=== PATIENT | female | born 1955 | race Caucasian/White ===

== ENCOUNTER 2023-11-26 12:37 | Outpatient (RCR) | payer MEDICARE, BC, SELFPAY | END 2024-03-25 23:59 | disposition home or self-care (01) | PROVIDERS: PCP Surgery; Visit Provider Surgery | DX: Z53.20 Procedure and treatment not carried out because of patient's decision for unspecified reasons (principal) ==

== ENCOUNTER 2023-12-03 13:45 | Outpatient (RCR) | payer MEDICARE, BC, SELFPAY | END 2024-04-01 23:59 | disposition home or self-care (01) | PROVIDERS: PCP Surgery; Visit Provider Neurological Surgery | DX: G95.9 Disease of spinal cord, unspecified (principal); M54.12 Radiculopathy, cervical region; M54.2 Cervicalgia; Z74.09 Other reduced mobility; R29.898 Other symptoms and signs involving the musculoskeletal system; Z51.89 Encounter for other specified aftercare | CPT/HCPCS: 97110; 97140; 97162 ==

== ENCOUNTER 2024-01-06 13:23 | Emergency (ER) | payer MEDICARE, BC, SELFPAY ==
[2024-01-06 13:38] VITALS: BP 139/71; PULSE 60; RESP 16; TEMP 36.2; O2SAT 98; BMI 30.4
--- NOTE | 2024-01-06 14:29 | ED.HEATRA ---
HPI - Head Injury General Time Seen by Provider: 14:29 Date Seen: 01/06/24 Chief complaint: Head Injury/Pain Stated complaint: Fell and hit head-lip bleeding-doesnt recall fall Time Seen by Provider: 01/06/24 14:29 Source: patient and RN notes reviewed Mode of arrival: ambulatory Limitations: no limitations History of Present Illness HPI Narrative: This 68-year-old female is coming in with her after a fall prior to coming in. Her was not with her at the time, she was in [facility] eating lunch. She tripped on the sidewalk and fell forward. She has abrasion on the palm of her left hand but no hand or wrist pain. She states she caught herself with her right wrist, is having pain in the right wrist area. She did hit her lower lip, has some bleeding there and swelling. She hit her head on the bottom lip, did not hit her forehead her head per se. She has no acute neck pain. She has had neck surgery in does have chronic neck pain but states she absolutely is having no new neck symptoms. There is no pain going into her arms from the neck. She does have right wrist pain but nothing coming down the arms. Denies any numbness tingling in her extremities. She is having no difficulty walking, no pain in her lower extremities. She denies any difficulty breathing, no chest pain or chest wall pain. She does have underlying dementia, on no blood thinners or anticoagulants, has underlying diabetes. Her tetanus is up-to-date in 2021. MD Complaint: fall Related Data Home Medications Medication Instructions Recorded Confirmed atenolol 50 mg tablet 50 mg PO DAILY 01/06/24 01/06/24 furosemide 20 mg tablet 20 mg PO DAILY 01/06/24 01/06/24 gabapentin 100 mg capsule mg PO 01/06/24 hydroxyzine HCl 25 mg tablet 25 mg PO DAILY 01/06/24 01/06/24 insulin aspart U-100 100 unit/mL subcut 01/06/24 (3 mL) subcutaneous pen insulin glargine 100 unit/mL (3 unit subcut 01/06/24 mL) subcutaneous pen (Lantus Solostar U-100 Insulin) insulin lispro 100 unit/mL subcut 01/06/24 subcutaneous pen (Humalog KwikPen (U-100) Insulin) lamotrigine 100 mg tablet 100 mg PO BID 01/06/24 01/06/24 lamotrigine 25 mg tablet PO 01/06/24 levothyroxine 125 mcg tablet 125 mcg PO DAILY 01/06/24 01/06/24 ondansetron 4 mg disintegrating 4 mg PO Q8H PRN 01/06/24 01/06/24 tablet rosuvastatin 5 mg tablet 5 mg PO DAILY 01/06/24 01/06/24 spironolactone 25 mg tablet 25 mg PO DAILY 01/06/24 01/06/24 trazodone 50 mg tablet 25 mg PO QPM PRN 01/06/24 01/06/24 Allergies Allergy/AdvReac Type Severity Reaction Status Date / Time No Known Drug Allergies Allergy Verified 01/06/24 13:45 Review of Systems Status of ROS: Reports: 6 or more systems reviewed and unremarkable except as noted in History and below Exam Const: Vital Signs, click to edit/add: Vital Signs - 24 hr 01/06/24 13:38 Temperature 97.2 F L Pulse Rate [Pulse Oximeter] 60 Respiratory Rate 16 Blood Pressure [Le ft Upper Arm] 139/71 Pulse Oximetry 98 Oxygen Delivery Me thod Room Air This 5-year-old female is ambulatory into the ED without any difficulty. She sitting up on the edge of the bed in exam room 6. She is alert, interactive, no apparent distress. I do know right away just left of center below the lower lip there is about a 3 mm laceration that is slightly curved, slight oozing at times. There is underlying bruising and swelling in this area. It does not cross onto the lip or the vermilion border at all. She feels like her teeth occlude normally, oropharynx reveals small little defect lower in the mucosa that is superficial, do not see any active bleeding at this time. Tongue is atraumatic, rest oral mucosa looks normal, dentition not showing any evidence of traumatic change, posterior pharynx normal. She is able to speak in complete sentences. Scalp without any changes of trauma. She has a superficial abrasion on her chin. Nose and nares atraumatic, no drainage. No drainage from her ears. No midline tenderness over neck, no paraspinous tenderness. She states she has limitation in range of motion baseline, feels she is at normal range of motion. Lungs are clear, good air entry, no wheezing crackles. CV regular rate and rhythm no murmur. Abdomen is soft, nontender. She has no pain around range of motion of shoulders or palpation, upper arms and elbows are normal. Forearms are normal until you get to her right wrist and she has some distal wrist tenderness, cannot find specific point tenderness, seems to be generalized over the right distal wrist and into the possible carpal bones. No tenderness over the left wrist. Superficial abrasion at the base in the center of the left palm, no active bleeding. Full range of motion of fingers in this hand normal snagger strength without any pain. She is nontender throughout her right hand and fingers, has normal range of motion and strength but movement of the hand does cause some wrist pain. Neurovascular is intact in both of her upper extremities. She was ambulatory into the ED, has no complaint of pain in her legs. Documenting provider has reviewed patient's vital signs: yes Course Course ED Course: Did discuss with patient that I thought she might benefit from 1 small suture on the outer aspect of the small laceration below her lower lip. She absolutely declined. I did take a Steri strip and place it across the area, hopefully reapproximating this in the use of the Steri-Strips will stop the minimal losing that was happening. Realistically this wound was lying nicely with the wound edges juxtaposed but there was some mild oozing before the Steri strip was placed. She is adamant that she does not want me to put a suture in. We will watch and observe to see if the Steri-Strips will be sufficient. We will x-ray her right hand. Do not see that she needs any head imaging. Reevaluation(s) Time of Reevaluation #1: 15:28 Reevaluation #1: Reviewed negative x-ray of her wrist for fracture. We discussed cock-up wrist splint, they state they have 1 at home. They can use this for comfort, if ongoing wrist pain will advise follow-up. Her Steri-Strips seems to be holding the area of the lower lip, no further bleeding. Vital Signs Vital signs: Initial Vital Signs Temperature 97.2 F L 01/06/24 13:38 Temperature Source Temporal Artery Scan 01/06/24 13:38 Pulse Rate 60 01/06/24 13:38 Respiratory Rate 16 01/06/24 13:38 Blood Pressure 139/71 01/06/24 13:38 Blood Pressure Mean 93 01/06/24 13:38 Blood Pressure Position Sitting 01/06/24 13:38 Pulse Oximetry 98 01/06/24 13:38 Oxygen Delivery Method Room Air 01/06/24 13:38 Vital Signs Temperature 97.2 F L 01/06/24 13:38 Pulse Rate 60 01/06/24 13:38 Respiratory Rate 16 01/06/24 13:38 Blood Pressure 139/71 01/06/24 13:38 Pulse Oximetry 98 01/06/24 13:38 Oxygen Delivery Method Room Air 01/06/24 13:38 Temperature 97.2 F L 01/06/24 13:38 Pulse Rate 60 01/06/24 13:38 Respiratory Rate 16 01/06/24 13:38 Blood Pressure 139/71 01/06/24 13:38 Pulse Oximetry 98 01/06/24 13:38 Oxygen Delivery Method Room Air 01/06/24 13:38 MDM - Head Injury Imaging Data XR right wrist: Attestation: I have reviewed the pertinent imaging results. Radiologist's impression: Patient: SARI NUNN Facility:?[facility] Patient ID:?[id number] Site Patient ID:?[id number]. Site :?[id number] Study:?XRay-Extremity Right WRIST 3 VIEWS-01/06/2024 3:01:02 PM Ordering Physician:RADHA Final Report: Indication: FALL, PAIN Technique: Three views of the right hand Comparison: None Findings/impression : No acute fracture or malalignment. 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 No significant osteoarthritic degenerative changes throughout the wrist. No suspicious osseous lesions. The soft tissues are unremarkable. Dictated by Cole Ryan MD @ 01/06/2024 3:18:07 PM (Electronic Signature) Discharge Plan Discharge Clinical Impression: Acute wrist pain Qualifiers: Laterality: right Qualified Code(s): M25.531 - Pain in right wrist Laceration of lower lip Qualifiers: Encounter type: initial encounter Qualified Code(s): S01.511A - Laceration without foreign body of lip, initial encounter Fall Qualifiers: Encounter type: initial encounter Qualified Code(s): W19.XXXA - Unspecified fall, initial encounter Patient Disposition: Home, Self-Care Condition: Stable Instructions: Fall Prevention for Older Adults (ED), Wrist Sprain (ED), Laceration Without Closure (ED) Additional Instructions: Use the Steri-Strips across the lower lip as needed for the next 3-5 days. If this wound has quit bleeding and has a nice scab, can stop using the Steri-Strips. Use bacitracin on the abrasions for the chin and the hand. Can use your wrist splint at home as needed for comfort. If your right wrist is not improving as far as pain over the next 1-2 weeks, do recommend re-evaluation in clinic for re-x-ray. Can use Tylenol per bottle directions if needed for any discomfort. If you have further concerns or issues in the interim, do recommend re-evaluation per Prescriptions: No Action trazodone 50 mg tablet 25 mg PO QPM PRN spironolactone 25 mg tablet 25 mg PO DAILY lamotrigine 25 mg tablet PO Patient Comments: only taking 100 mg daily levothyroxine 125 mcg tablet 125 mcg PO DAILY hydroxyzine HCl 25 mg tablet 25 mg PO DAILY furosemide 20 mg tablet 20 mg PO DAILY gabapentin 100 mg capsule PO ondansetron 4 mg tablet,disintegrating 4 mg PO Q8H PRN atenolol 50 mg tablet 50 mg PO DAILY lamotrigine 100 mg tablet 100 mg PO BID insulin lispro [Humalog KwikPen Insulin] 100 unit/mL insulin pen subcut insulin aspart U-100 100 unit/mL (3 mL) insulin pen subcut rosuvastatin 5 mg tablet 5 mg PO DAILY insulin glargine [Lantus Solostar U-100 Insulin] 100 unit/mL (3 mL) insulin pen subcut Follow Up/Referrals: Kana Hercules MD [Primary Care Provider] - Stand Alone Forms: [employer] Info Instructions
--- NOTE | 2024-01-06 14:37 | XR_ITS ---
Patient: SARI NUNN Facility:?[facility] Patient ID:?[id number] Site Patient ID:?[id number]. Site :?[id number] Study:?XRay-Extremity Right WRIST 3 VIEWS-01/06/2024 3:01:02 PM Ordering Physician:RADHA Final Report: Indication: FALL, PAIN Technique: Three views of the right hand Comparison: None Findings/impression : No acute fracture or malalignment. 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 No significant osteoarthritic degenerative changes throughout the wrist. No suspicious osseous lesions. The soft tissues are unremarkable. Dictated by Cole Ryan MD @ 01/06/2024 3:18:07 PM Signed by:?Cole Ryan MD @01/06/2024 3:18:07 PM (Electronic Signature)
== END 2024-01-06 15:38 | disposition home or self-care (01) ==
PROVIDERS: Emergency Provider Family Medicine; PCP Surgery
DX: M25.531 Pain in right wrist (principal); S01.511A Laceration without foreign body of lip, initial encounter; W19.XXXA Unspecified fall, initial encounter
CPT/HCPCS: 29125; 73110; 99283; 99284

== ENCOUNTER 2024-06-26 14:45 | Outpatient (RCR) | payer MEDICARE, BC, SELFPAY | END 2024-10-24 23:59 | disposition home or self-care (01) | PROVIDERS: PCP Surgery; Visit Provider Surgery | DX: M25.812 Other specified joint disorders, left shoulder (principal); M25.512 Pain in left shoulder; Z74.09 Other reduced mobility; R53.1 Weakness; R29.3 Abnormal posture; Z51.89 Encounter for other specified aftercare | CPT/HCPCS: 97110; 97140; 97162 ==

== ENCOUNTER 2025-06-09 20:19 | Outpatient (CLI) | payer MEDICARE, BC, SELFPAY | END 2025-06-09 20:20 | disposition home or self-care (01) | LOC: AMB 06-10 15:28 | PROVIDERS: PCP Surgery; Visit Provider Emergency Medicine | DX: M54.9 Dorsalgia, unspecified (principal); M54.2 Cervicalgia | CPT/HCPCS: A0425; A0429 ==

== ENCOUNTER 2025-06-09 20:43 | Emergency (ER) | payer MEDICARE, BC, SELFPAY ==
--- OUTSIDE RECORDS SUMMARY | 2025-06-09 20:45 | XMS_ITS | Clinical Summary ---
Author Organization [employer] [facility] [employer] Address [address] [place] [address] Care Team Providers Care Soapstoner Name Role Phone Kana Hercules MD Primary Care Provider [phone] Allergies Active Allergy Reactions Criticality Noted Date Comments Amlodipine Other - Describe In Comment Field 01/29/2020 Multiple symptoms - Headaches, stomach pain, and more Aspirin GI Bleeding 07/28/2019 Atorvastatin Myalgia 05/24/2010 Diazepam Other - Describe In Comment Field 05/24/2010 Pt did not like the way it made her feel Hydrochlorothiazide 05/26/2010 Caused hyponatremia Lisinopril Cough 01/01/2020 Losartan Other - Describe In Comment Field 01/29/2020 Racing heart, chest pain, shortness of breath Meclizine Hives,Vomiting 06/02/2018 Olanzapine Hallucinations 06/17/2023 Pravastatin 08/07/2010 Nausea, vomiting, and back pain. Quetiapine 05/26/2010 Caused jesus and hallucinations. Sumatriptan 05/24/2010 Medications glucagon (TAMMIE KATHRYN) 1 mg kit Glucagon Emergency Kit for Low Blood Sugar 1 mg injection See Instructions, Subcut. Once, use as directed if unconscious due to low blood sugar and unable to swallow, seek medical attention if used, PRN: Hyperglycemia, 1 kit(s), 1 Refill(s) 01/31/20 16 Active multivit,Ca,mins-F A-bioflav#4 800 mcg cmpk Take 1 Packet by mouth once daily. 0 01/22/20 20 Active Dexcom G7 Clod Puller for continuous blood glucose monitor (CGM)Indications:T ype 1 diabetes mellitus with stage 3b chronic kidney disease (HC) To be used to read blood sugars follow four h club agent directions. 1 Each 12/25/19 23 Active Bifidobacterium infantis (ALIGN ORAL) Take 1 Capsule by mouth once daily. Active insulin aspart, U-100, (NOVOLOG FLEXPEN) 100 unit/mL (3 mL) penIndications:Typ e 1 diabetes mellitus with stage 3b chronic kidney disease (HC) 16 units with breakfast, 16 units with lunch, and 18 units with supper 45 mL 3 05/01/20 24 Active rosuvastatin (CRESTOR) 5 mg tabletIndications: Hyperlipidemia, unspecified hyperlipidemia type Take 1 Tablet (5 mg) by mouth at bedtime. 90 Tablet 3 05/01/20 24 Active Additional Information Patient not taking.Reported on 03/15/2025 spironolactone (ALDACTONE) 25 mg tabletIndications: Hypertension, unspecified type Take 1 Tablet (25 mg) by mouth once daily in the morning. 90 Tablet 3 05/01/20 24 Active furosemide (LASIX) 20 mg tabletIndications: Hypertension, unspecified type Take 1 Tablet (20 mg) by mouth once daily in the morning. 90 Tablet 3 05/01/20 24 Active Dexcom G7 Sensor for continuous blood glucose monitor (CGM)Indications:T ype 1 diabetes mellitus with stage 3b chronic kidney disease (HC) CHANGE EVERY 10 DAYS 9 Each 3 05/07/20 24 Active atenoloL (TENORMIN) 100 mg tabletIndications: Hypertension, unspecified type Take 1 Tablet (100 mg) by mouth once daily. 90 Tablet 3 06/02/20 24 Active lamoTRIgine 100 mg tabletIndications: Bipolar depression (HC) TAKE ONE TABLET BY MOUTH EVERY EVENING AT BEDTIME 90 Tablet 11/18/19 25 Active pen needle,diabetic dual safty (BD AutoShield Duo Pen Needle) 30 gauge x 11/01 ndleIndications:Ty pe 1 diabetes mellitus with stage 3b chronic kidney disease (HC) USE DIRECTED WITH INSULIN FIVE TIMES PER DAY 500 Each 3 12/16/19 25 Active traZODone 50 mg tabletIndications: Anxiety TAKE 1/2 TABLET BY MOUTH NIGHTLY FOR INSOMNIA at 8 pm 12/16/19 25 Active LORazepam 0.5 mg tabIndications:Anx iety Take 1 Tablet (0.5 mg) by mouth once daily. In the afternoon for . 30 Tablet 5 12/16/19 25 Active acetaminophen 500 mg tablet Take 1,000 mg by mouth every 6 hours if needed. Give two tabs by mouth once daily as needed Max acetaminophen dose: 4000mg in 24 hrs. Active acetaminophen 500 mg tablet Take 1,000 mg by mouth every 6 hours if needed. Give two tabs by mouth every day at 8 am and 8 pm Max acetaminophen dose: 4000mg in 24 hrs. Active medication order composer Daily Diabetes Health Pack Oral Miscellaneous-Giv e one pack once per day Active LORazepam 0.5 mg tab Take 0.5 mg by mouth every 6 hours if needed. Active magnesium L-threonate 48 mg magnesium (667 mg) cap Take by mouth. Activ e polyethylene glycoL (Miralax) 17 gram/scoop powder Mix 1 scoop in liquid then take by mouth once daily. One scoop daily at 8am Active naloxone (Narcan) 4 mg/actuation nasal spray Inhale 1 Deport into affected nostril(s) each time if needed for Patient Diff To Arouse or Resp Rate < 8 / min. Additional doses may be given every 2 to 3 minutes until emergency medical assistance arrives. Active niacin 50 mg tablet Take 50 mg by mouth once daily. Active levothyroxine (SYNTHROID) 150 mcg tablet Take 150 mcg by mouth once daily. 02/11/20 25 Active ramelteon (ROZEREM) 8 mg tabletIndications: Insomnia due to other mental disorder TAKE 1 TABLET BY MOUTH EVERY NIGHT AT BEDTIME 90 Tablet 03/21/20 25 Active insulin glargine (U-100) (Lantus Solostar U-100 Insulin) 100 unit/mL (3 mL) penIndications:Typ e 1 diabetes mellitus with complication (HC) Inject 18 units subcutaneous two times daily. 30 mL 04/25/20 25 Active Active Problems Problem Noted Date Diagnosed Date Insomnia due to other mental disorder 03/16/2025 Alzheimer disease 12/15/2024 Anxiety 12/15/2024 Hypothyroidism (acquired) 01/03/2017 Acute gastric ulcer without hemorrhage or perfor ation 01/01/2017 Overview (01/01/2017): EGD 12/2016 gastric ulcer Diabetic retinopathy of both eyes 11/02/2016 Diabetic peripheral neuropathy 11/02/2016 Primary cervical cancer 11/02/2016 Overview (11/02/2016): At age 19 - s/p hysterectomy Dyslipidemia 05/04/2016 History of posttraumatic stress disorder (PTSD) 03/07/2016 Alcohol dependence in sustained full remission 0 03/07/2016 Overview (11/02/2016): No alcohol since 1986 Bipolar I disorder 03/07/2016 CKD (chronic kidney disease) stage 3, GFR 30-59 ml/min 05/26/2010 Overview (05/26/2010): Secondary to presumptive diabetic nephropathy. Type 1 diabetes mellitus with complication Hypertension Resolved Problems Problem Noted Date Diagnosed Date Resolved Date Generalized pain 03/23/2016 11/02/2016 Alcohol dependence, in remission 06/27/2010 11/02/2016 DIABETES 07/10/2002 08/07/2010 Bipolar affective disorder 0 04/13/2022 High cholesterol 11/02/2016 Renal failure 05/26/2010 Encounters Date Type Department Care Team Description 06/01/2025 2:00 PM CDT Office Visit [facility] [address] [place] [address] Kana Hercules MD Follow Up 06/01/2025 Travel 04/23/2025 Refill [facility] [address] [place] [address] Kana Hercules MD Refill Request (Lantus Solostar 100 unit/ml ) 03/18/2025 Refill [facility] [address] [place] [address] Tana Wise MD Refill Request (Ramelteon) 03/15/2025 1:45 PM CDT Office Visit [facility] [address] [place] [address] Tana Wise MD Medication Management; Follow Up 03/15/2025 Travel from Last 3 Months Immunizations Immunization Administration Dates Next Due AMB Influenza, IIV4 PF (=>6 mos Flulaval,Fluzone Fluarix)(Flu Clinic Only) 05/10/2017 COVID-19 vaccine (PhotoPharmics-Bio NTech 30mcg/0.3mL) 12YO+ BIVALENT PF, MDV 06/21/2022 COVID-19 vaccine (PhotoPharmics-Bio NTech 30mcg/0.3mL) 12YO+ CORONA-SUCROSE PF, MDV 01/30/2022 COVID-19 vaccine ([employer] NTech 30mcg/0.3mL) PF, MDV 07/20/2021,11/18/2020,10/28/2020 Influenza A (H1N1), Inactivated 08/01/2009 Influenza A (H1N1), Inactiva velia (Age >=3 Years) 08/01/2009 Influenza Virus, Unspecified 09/27/2023, 06/21/2022,05/20/2018,2014,2014,05/01/2013,05/19/2012,0 05/18/2011,05/03/2010,08/01/2009, 009 Influenza, High-dose Quadriv alent Inactivated 06/26/2021 Influenza, IIV3 (Age 6-35 mos) 05/03/2010,2008 Influenza, IIV3 (Age >=3 years) 05/23/20 15,2014,05/01/2013,2011,05/18/2011,05/03/2010,05/04/2009 Influenza, IIV4 05/17/2020, 9,05/10/2017,2015 Influenza, IIV4 (=>6mos) MDV 05/23/2015 Influenza, Inactivated AIIV4 (Age 65+ Years) Preserv Free 09/27/2023,06/21/2022 Influenza, Inactivated IIV3 (Age 65+ Years) Preserv Free 05/20/2018 Pneumococcal Poly,23-Valent (Pneumovax) 05/20/2018,06/12/2007,08/19/2006 Pneumococcal conj 13-Valent (Prevnar 13) 05/26/2019 Td (Age >=7 Years) 04/13/2022,08/19/2004 Tdap 05/18/2011 Tuberculin (PPD) 03/27/2016 Zoster (Shingrix-RZV, recombinant) 02/25/2018, Zoster (Zostavax-ZVL, live) 2014 Family History Medical History Relation Name Comments Cancer Father stomach CA Psychiatric illness Father Bipolar/ schitzophr Alcohol/Drug Mother Cancer Mother liver CA/Failur e Diabetes Mother Cancer-breast Other niece Cancer-breast Sister Cancer-ovarian No Family History Relation Name Status Comments Father Mother (Age 68) Other Sister Social History Tobacco Use Types Packs/Day Years Used Date Smoking Tobacco: Former Cigarettes 2 39 0 08/19/1968 - 08/19/2007 Smokeless Tobacco: Never Tobacco Cessation:Counseling Given: Yes Alcohol Use Standard Drinks/Week Comments No 0 (1 standard drink = 0.6 oz pur e alcohol) sober for 25 years, uses AA PHQ-2 Answer Date Recorded PHQ-2 TOTAL SCORE 4 03/15/2025 Social Connections Answer Date Recorded Do you often feel lonely or isolated from those around you? 4 11/17/2024 Alcohol Use Answer Date Recorded How often do you have a drink containing alcohol ? 0 06/01/2025 Average Number of Drinks Not on file 025 Frequency of Binge Drinking Not on file 05/19 Financial Resource Strain Answer Date R ecorded Difficulty of Paying Living Expenses 3 11/17/2024 Difficulty of Paying Living Expenses Not on file 11/17/2024 Food Insecurity Answer Date Recorded Do you worry your food will run out before you are able to buy more? 1 11/17/2024 Transportation Needs Answer Date Record ed Does lack of transportation keep you from medica l appointments? 1 11/17/2024 Does lack of transportation keep you from work, meetings or getting things that you need? 1 11/17/2024 Housing Stability Answer Date Recorded What is your housing situation today? 1 11/17/2024 Utilities Answer Date Recorded Do you have trouble paying f or utilities (for example, heat, electricity, water, phone)? 1 11/17/2024 Comments No Sex and Gender Information Value Date Recorded Sex Assigned at Not on file Legal Sex Female 6:10 AM SHRINKING MACHINE OPERATOR Gender Identity Not on file Sexual Orientation Not on file Obstetrics History Last Filed Vital Signs Vital Sign Reading Time Taken Comments Blood Pressure 125/72 06/01/2025 1:53 PM CDT Pulse 61 06/01/2025 1:53 PM CDT Temperature 36.9 C (98.5 F) 10/08/2024 2:28 PM SHRINKING MACHINE OPERATOR Respiratory Rate 18 10/05/2023 8:26 AM SHRINKING MACHINE OPERATOR Oxygen Saturation 98% 06/01/2025 1:53 PM CDT Inhaled Oxygen Concentration - - Weight 91.4 kg (201 lb 6.4 oz) 06/01/2025 1:53 P M CDT Height 168.5 cm (5' 6.34) 05/01/2024 11:01 AM C DT Body Mass Index 32.18 05/01/2024 11:01 AM CDT Plan of Treatment Upcoming Encounters Date Type Department Care Team (Late st Contact Info) Description 09/13/2025 1:45 PM SHRINKING MACHINE OPERATOR Office Visit [facility] [address] [place] [address] Tana Wise MD [address] [place] [address] Health Maintenance Due Date Last Done Comments RSV vaccine for adults or (1 - Risk 60-74 years 1-dose series) 2013 Fecal testing non-DNA (FIT,FOBT,iFOBT) for age 45-75 01/01/2024 12/31/2022, 07/06/2021, 01/27/2017 Mammogram for age 45-75 05/16/2024 05/16/20 23, 05/01/2022, 04/28/2021, Additional history exists COVID-19 vaccine series ( season) 2025 06/21/2022, 01/30/2022, 07/20/2021, Additional history exists Influenza Vaccine (#1) 2025 , 09/27/2023, 06/21/2022, Additional history exists BMI (ht and wt on same day) for age 18+ 05/01/2025 05/01/2024, 09/27/2023, 05/06/2023, Additional history exists Medicare Wellness for age 65+ 05/02/2025 05/01/2024, 05/06/2023, 04/13/2022, Additional history exists Depression screening for age 12+ 03/15/2026 03/15/2025, 12/18/2024, 12/15/2024, Additional history exists Lipids for age 45-75 09/10/2029 09/10/2024, 05/06/2023, 03/02/2022, Additional history exists Tetanus booster 04/13/2032 04/13/2022, 04/21, 08/19/2004 Zoster (shingles) series for age 50+ Completed 02/25/2018, 11/11/2017, 2014 DEXA/DXA scan for age 65+ Completed 03/12/2019 Pneumococcal series for age 50+ Completed 05/26/2019, 05/20/2018, 06/12/2007, Additional history exists Hepatitis C screening for age 18-79 Completed 12/30/2019 Hepatitis B series for 19+ Aged Out N o longer eligible based on patient's age to complete this topic Medical Devices Implanted Type Area Dental Service Chief Device Identifier Shelf Expiration Date Model / Serial / Lot Putty Easypack 5cc Magnetos - [id number] Implanted:Qty: 1 on 10/04/2023 by Nahomy Quintero MD, PhD at [facility] N/A: Spine [employer] Supponor 06/19/2028 [id number] / / [id number] Stephanie Spacer Tcs 6 Deg Sm 5mm Implanted:Qty: 1 on 10/04/2023 by Nahomy Quintero MD, PhD at [facility] N/A: Spine 03/14/2028 [id number] / / [id number] Description:STEPHANIE SPACER TCS 6 DEG SM 5MM Stephanie Spacer Tcs 6 Deg Sm 5mm Implanted:Qty: 1 on 10/04/2023 by Nahomy Quintero MD, PhD at [facility] N/A: Spine 03/07/2028 [id number] / / [id number] Description:STEPHANIE SPACER TCS 6 DEG SM 5MM Stephanie Spacer Tcs 6 Deg Sm 6mm Implanted:Qty: 1 on 10/04/2023 by Nahomy Quintero MD, PhD at [facility] N/A: Spine 02/08/2028 [id number] / / [id number] Description:STEPHANIE SPACER TCS 6 DEG SM 6MM Screw Cerv Ant 3.5x14mm Endo Skeleton Tcs Stand Alone - [id number] Implanted:Qty: 6 on 10/04/2023 by Nahomy Quintero MD, PhD at [facility] N/A: Spine Medtronic Spine/Ortho [id number] / / Procedures Procedure Name Priority Date/Time Associated Diagnosis Comments LIPID PANEL Routine 09/10/2024 12:40 PM SHRINKING MACHINE OPERATOR Type 1 diabetes mellitus with stage 3b chronic kidney disease (HC) XR MAMMO BEVERLY BILAT DIAG SUHAIL 05/16/2023 2:08 PM CDT Breast pain, right OCCULT BLOOD IFOBT STOOL Routine 12/31/2022 2:04 PM CDT Screening for colon cancer ANTI HCV Add On 12/30/2019 8:48 AM CDT Need for hepatitis C screening test XR DXA BONE DENSITY 2 SITES AXIAL Routine 03/12/2019 10:29 AM CDT Asymptomatic menopausal state from Last 3 Months or Most Recently Relevant to Health Maintenance Results * (ABNORMAL) LIPID PANEL (09/10/2024 12:40 PM SHRINKING MACHINE OPERATOR) CHOLESTEROL, TOTAL 324(H) <200 mg/dL [facility] [place] HDL CHOLESTEROL 59 > OR = 50 mg/dL [facility] TRIGLYCERIDES 206(H) <150 mg/dL [facility] Comment: If a non-fasting specimen was collected, consider repeat triglyceride testing on a fasting specimen if clinically indicated. Janell et al. J. of Clin. Lipidol. 2015;9:129-169. LDL-CHOLESTEROL 226(H) mg/dL (calc) [facility] Comment: LDL-C levels > or = 190 mg/dL may indicate familial hypercholesterolemia (FH). Clinical assessment and measurement of blood lipid levels should be considered for all first degree relatives of patients with an FH diagnosis. LDL Cholesterol (LDL-C) levels > or = 300 mg/dL may indicate homozygous familial hypercholesterolemia (HoFH). Untreated, these extremely high LDL-C levels can result in premature CV events and mortality. Patients should be identified early and provided appropriate interventions to reduce the cumulative LDL-C burden from . For questions about testing for familial hypercholesterolemia, please call [employer] Client Services at [phone].GENE.INFO. Janell Medley, et al. J National Lipid Association Recommendations for Patient-Centered Management of Dyslipidemia: Part 1 Journal of Clinical Lipidology 2015;9(2), 129-169. Carolina Baldwin et al. (2014). Homozygous familial hypercholesterolaemia: new insights and guidance for clinicians to improve detection and clinical management. Heart Journal, 35(32), 6638-1336. Reference range: <100 Desirable range <100 mg/dL for primary prevention; <70 mg/dL for patients with CHD or diabetic patients with > or = 2 CHD risk factors. LDL-C is now calculated using the Stephan-Ivon calculation, which is a validated novel method providing better accuracy than the Friedewald equation in the estimation of LDL-C. Stephan NAVA et al. EARL. 2013;310(19): 6317-0142 (http://education.Huango.cn/faq/ZMK367) CHOL/HDLC RATIO 5.5(H) <5.0 (calc) [facility] NON HDL CHOLESTEROL 265(H) <130 mg/dL (calc) [facility] Comment: Non-HDL level > or = 220 is very high and may indicate genetic familial hypercholesterolemia (FH). Clinical assessment and measurement of blood lipid levels should be considered for all first-degree relatives of patients with an FH diagnosis. For patients with diabetes plus 1 major ASCVD risk factor, treating to a non-HDL-C goal of <100 mg/dL (LDL-C of <70 mg/dL) is considered a therapeutic option. Blood BLOOD SPECIMEN / Unknown 09/10/2024 12:40 PM SHRINKING MACHINE OPERATOR 09/10/2024 12:40 PM SHRINKING MACHINE OPERATOR us Kana Hercules MD CHEMISTRY Final Resu lt [facility] [address] [place] [address], [facility] [place] [address] [place] [address] * XR MAMMO BEVERLY BILAT DIAG (05/16/2023 2:08 PM CDT) Anatomical Region Laterality Modality BREASTS, Breast Left, Breast Right Bilateral Mammography 05/16/2023 2:40 PM CDT Impressions 05/16/2023 3:55 PM CDT No evidence of malignancy. RECOMMENDATIONS: Annual BILATERAL screening mammography. Results and recommendations were discussed with the patient at the time of the exam. BI-RADS Category 2: Benign Dictated by: Carlos Bueno MD @05/16/2023 2:40:04 PM / LIONEL:leonila PATIENTS: You will also receive a letter with your examination results in an easy to read format. If you have questions about your results, please contact your referring provider. Narrative 05/16/2023 3:55 PM CDT For Patients: As a result of the Century Cures Act, medical imaging exams and procedure reports are released immediately into your electronic medical record. You may view this report before your referring provider. If you have questions, please contact your health care provider. DIGITAL DIAGNOSTIC BILATERAL MAMMOGRAM USING TOMOSYNTHESIS AND COMPUTER-AIDED DETECTION, 05/16/2023 RIGHT BREAST ULTRASOUND, 05/16/2023 CLINICAL HISTORY: RIGHT breast pain. COMPARISON: 05/01/2022, 06/25/2021, 12/06/2018, 01/16/2011. TECHNIQUE: Digital BILATERAL mammogram in four projections. Tomosynthesis and CAD utilized. Real-time ultrasound imaging of RIGHT breast with imaging documentation. BREAST COMPOSITION: There are areas of scattered fibroglandular density. FINDINGS: 3D CC/MLO BILATERAL mammogram images submitted. No architectural distortion or suspicious mass. No suspicious calcifications or adenopathy. Targeted RIGHT breast ultrasound performed in the area of concern at 5 o'clock 5 cm from the nipple. Normal breast tissue is present. No fibrocystic change or mass. us Kana Hercules MD MAMMO Final Resu lt * OCCULT BLOOD IFOBT STOOL [[id number]] (12/31/2022 2:04 PM CDT) STOOL BLOOD ,IFOBT Negative Negative 01/02/2023 3:12 PM CDT [facility] Stool STOOL SPECIMEN / Unknown Non-Blood / Unknown 12/31/2022 2:04 PM CDT 01/02/2023 2:05 PM CDT Selin Samano MD LABORATORY Final R esult Performing Organization Address City[facility]/ZIP Co de Phone Number [facility] [address] [place] [address], [place] [phone] * ANTI HCV (12/30/2019 8:48 AM CDT) HEPATITIS C ANTIBODY Non-[place]act [place] Non-[place]act [place] 01/01/2020 1:48 PM CDT [facility] Comment:Antibodies to HCV no t detected; does not exclude the possibility of exposure to HCV. Blood BLOOD SPECIMEN / Unknown Venipuncture / Unknown 12/30/2019 8:48 AM CDT 12/30/2019 8:50 AM CDT Kana Hercules MD SEND OUTS Final Resu lt Performing Organization Address City/[facility] Co de Phone Number [facility] [address] [place] [address], [place] * XR DXA BONE DENSITY 2 SITES AXIAL (03/12/2019 10:29 AM CDT) Anatomical Region Laterality Modality Spine, HIPS, HIPL, HIPR Other Narrative 03/17/2019 8:52 AM CDT Please see scanned document for results of this study. Kana Hercules MD DEXA Final Resu lt from Last 3 Months or Most Recently Relevant to Health Maintenance Insurance [facility] MEDICARE PB ONLY MEDICARE PART B HB ONLY MEDICARE PART A HB ONLY Advance Directives Documents on File Type Date Recorded Patient Pbx Supervisor Expl anation Healthcare Directive 06/20/2010 HEALTH CARE DIRECTIVE, [facility], 06/20/10 * Full Code (Latest Code Status on File) Date Activated Date Inactivated Comments 10/04/2023 11:08 AM 10/05/2023 4:07 PM Question Answer Comments Code Status Discussion: Not Discussed * Full Code Date Activated Date Inactivated Comments 03/06/2016 5:21 PM 05/09/2016 12:12 PM Question Answer Comments Code Status Discussion: Not Discussed Care Teams Soapstoner Relationship Specialty Start Date End Date Kana Hercules MD [address] [facility] [address] PCP - General Family Practice 05/31/16
[2025-06-09 20:50] VITALS: BP 159/73; PULSE 72; RESP 16; TEMP 36.6; O2SAT 99
--- NOTE | 2025-06-09 20:56 | ED.GENADULT ---
HPI - General Adult General Date Seen: 06/09/25 Chief complaint: Head Injury/Pain Stated complaint: fall Time Seen by Provider: 06/09/25 20:50 History of Present Illness HPI narrative: 70-year-old female brought to the ER today by EMS from her long term facility. She fell backwards and hit her head on the floor. No loss of consciousness and fall was witnessed by staff. She has a hematoma on her right occiput. No head laceration. History from [place], has alzheimers. has been declining over past several months. Not able to know the day most of the time, or the time. Not even able to speak full sentences because she forgets what she was going to say. Has frequent falls lately, but cant remember to use her walker and gets frustrated with the walker. she won't use her wheelchair for staff. she is a restless walker. Often time is stubborn and won't sit in the wheelchair. often can't follow commmands. She did have neck pain a few years ago. Had a neck operation to stabilize vertebrae a couple of years ago. Report from EMS is that tonight she had a witnessed ground level fall by her long-term/memory care staff. She fell backwards and struck the back of her head against the floor. No loss of consciousness. Patient is able to tell me that she has a headache. She is not really able show me where it hurts. She also is able to tell me she has neck pain, when asked directly. She denies any other complaints. When I am palpating her body she denies any pain in her thoracic spine, lumbar spine, chest, abdomen, hips, lower extremities, upper extremities. Related Data Home Medications ?Medication ?Instructions ?Recorded ?Confirmed atenolol 50 mg tablet 50 mg PO DAILY 01/06/24 06/09/25 furosemide 20 mg tablet 20 mg PO DAILY 01/06/24 06/09/25 gabapentin 100 mg capsule mg PO 01/06/24 hydroxyzine HCl 25 mg tablet 25 mg PO DAILY 01/06/24 01/06/24 insulin aspart U-100 100 unit/mL subcut 01/06/24 (3 mL) subcutaneous pen insulin glargine 100 unit/mL (3 unit subcut 01/06/24 mL) subcutaneous pen (Lantus Solostar U-100 Insulin) insulin lispro 100 unit/mL subcut 01/06/24 subcutaneous pen (Humalog KwikPen (U-100) Insulin) lamotrigine 100 mg tablet 100 mg PO BID 01/06/24 06/09/25 lamotrigine 25 mg tablet PO 01/06/24 levothyroxine 125 mcg tablet 125 mcg PO DAILY 01/06/24 06/09/25 ondansetron 4 mg disintegrating 4 mg PO Q8H PRN 01/06/24 06/09/25 tablet rosuvastatin 5 mg tablet 5 mg PO DAILY 01/06/24 06/09/25 spironolactone 25 mg tablet 25 mg PO DAILY 01/06/24 06/09/25 trazodone 50 mg tablet 25 mg PO QPM PRN 01/06/24 06/09/25 Allergies Allergy/AdvReac Type Severity Reaction Status Date / Time amlodipine Allergy Mild Verified 06/09/25 21:03 aspirin Allergy Mild Verified 06/09/25 21:03 atorvastatin Allergy Mild Verified 06/09/25 21:03 diazepam Allergy Mild Verified 06/09/25 21:03 hydrochlorothiazide Allergy Mild Verified 06/09/25 21:03 lisinopril Allergy Mild Verified 06/09/25 21:03 losartan Allergy Mild Verified 06/09/25 21:03 meclizine Allergy Mild Verified 06/09/25 21:03 olanzapine Allergy Mild Verified 06/09/25 21:03 pravastatin Allergy Mild Verified 06/09/25 21:03 quetiapine (From Seroquel) Allergy Mild Verified 06/09/25 21:03 sumatriptan Allergy Mild Verified 06/09/25 21:03 PFS PFSH Social History Smoking Status: Never smoker Do you use any of these nicotine containing products: None Second hand tobacco smoke exposure: No How often do you have a drink containing alcohol: never AUDIT-C Alcohol total score: 0 Non-prescribed substance use: denies use Exam Narrative: Exam Narrative: Constitutional: Appears well-developed and well-nourished. Alert. She is pleasant but demented. Not able to provide any history. Able to follow simple commands but often times needs to have the repeated to understand what were talking about. In discussion with her , Jimbo, by phone, she sounds like she is at her neurologic baseline. HENT: Head: There is a roughly 5 x 5 cm right occipital scalp hematoma. No overlying laceration. No depressed skull fracture, Raccoon Eyes, Herrera's sign, or hemotympanum. Face normal. TMs normal. Nose: Nose normal. Mouth/Throat: Oral mucosa is clear and moist. no trismus. Pharynx normal. Tonsils symmetric. No tonsillar enlargement, erythema, or exudate. Eyes: Conjunctivae normal. EOM normal. Pupils equal, round, and reactive to light. No scleral icterus. Neck: She does have posterior tenderness of the neck without any step-off. No bruising there. Normal range of motion. Neck supple. No tracheal deviation present. Cardiovascular: Normal rate, regular rhythm. No gallop. No friction rub. No murmur heard. Symmetric radial artery pulses Pulmonary/Chest: Effort normal. No stridor. No respiratory distress. No wheezes. No rales. No rhonchi . No tenderness. Abdominal: Soft. Bowel sounds normal. No distension. No mass. No tenderness. No rebound. No guarding. Musculoskeletal: No tenderness of her ribcage, thoracic spine, lumbar spine. Pelvis is stable. Hips are not tender. RUE: Normal range of motion. No tenderness. No deformity LUE: Normal range of motion. No tenderness. No deformity RLE: Normal range of motion. No edema. No tenderness. No deformity LLE: Normal range of motion. No edema. No tenderness. No deformity Lymph: No cervical adenopathy. Neurological: Alert and oriented to person but not place or time. Not able to provide history. Does reports that she has had progressing dementia for the past few months and then her current baseline is that she often is not able to finish a sentence because she forgets what she was saying before she gets to the end of the sentence. She tends to be a a restless walker and is not able to cooperate with using her walker and will not often use a wheelchair LS her is there to remind her to use it. She has had multiple recent falls because she is developing poor balance for her dementia. Normal strength. CN II-VII intact. No sensory deficit. GCS eye subscore is 4. GCS verbal subscore is 5. GCS motor subscore is 6. Normal coordination Skin: Skin is warm and dry. No rash noted. No pallor. Normal capillary refill. Psychiatric: Smiling and polite. Normal affect. Limited by dementia Const: Vital Signs, click to edit/add: Vital Signs - 24 hr 06/09/25 20:50 Temperature 97.8 F Pulse Rate [Pulse Oximeter] 72 Respiratory Rate 16 Blood Pressure [Ri ght Upper Arm] 159/73 H Pulse Oximetry 99 Oxygen Delivery Me thod Room Air Course Vital Signs Vital signs: Initial Vital Signs Temperature 97.8 F 06/09/25 20:50 Temperature Source Temporal Artery Scan 06/09/25 20:50 Pulse Rate 72 06/09/25 20:50 Respiratory Rate 16 06/09/25 20:50 Blood Pressure 159/73 H 06/09/25 20:50 Blood Pressure Mean 101 06/09/25 20:50 Pulse Oximetry 99 06/09/25 20:50 Oxygen Delivery Method Room Air 06/09/25 20:50 Vital Signs Temperature 97.8 F 06/09/25 20:50 Pulse Rate 72 06/09/25 20:50 Respiratory Rate 16 06/09/25 20:50 Blood Pressure 159/73 H 06/09/25 20:50 Pulse Oximetry 99 06/09/25 20:50 Oxygen Delivery Method Room Air 06/09/25 20:50 Temperature 97.8 F 06/09/25 20:50 Pulse Rate 72 06/09/25 20:50 Respiratory Rate 16 06/09/25 20:50 Blood Pressure 159/73 H 06/09/25 20:50 Pulse Oximetry 99 06/09/25 20:50 Oxygen Delivery Method Room Air 06/09/25 20:50 Medications Administered Medications: Discontinued Medications Generic Name Dose Route Start Last Admin Trade Name Freq PRN Reason Stop Dose Admin Acetaminophen 1,000 mg 06/09/25 21:03 06/09/25 21:43 Acetaminophen 500 Mg Tablet PO 06/09/25 21:04 1,000 mg ONCE ONE Administration Medical Decision Making MDM Narrative Medical decision making narrative: This patient presents with blunt head trauma after M a witnessed ground level fall. She does have significant dementia which is lips her ability to answer questions and cooperate with neuro exam but we believe her to be at her neurologic baseline. She has a fairly large right occipital scalp hematoma. Differential includes intracranial injuries (e.g. skull fracture, epidural hematoma, subdural hematoma, intracerebral hemorrhage, and traumatic subarachnoid hemorrhage), verses concussion or other traumatic brain injury. CT imaging was obtained and fortunately was normal. At this time it appears that the patient's symptoms are due to her hematoma C-spine CT is negative for any acute fractures The family/caregiver understand that they must return if any red flags appear/develop in the coming hours/days, as this may represent an indication to perform a repeat CT scan or further evaluation. I have noted that red flags include: headaches that get worse, increased drowsiness, strange behavior, repetitive speech, seizures, repeated vomiting, growing confusion, increased irritability, slurred speech, weakness or numbness, and loss of responsiveness. This information will also be provided in writing at discharge. It sounds of the fall is related to her progressing dementia and worsening balance. She does have multiple recent falls. Her and her staff members at her nursing facility have been working with her to try to get her to use walker and wheelchair more often. The family's questions have been answered. They will be transferred by EMS back to the memory care unit. Imaging Data CT C spine: Attestation: I have reviewed the pertinent imaging results. Radiologist's impression: FINDINGS: No acute fracture or suspicious osseous lesion. Postoperative changes C4-C7. Atlantoaxial and atlantooccipital alignment are preserved. The cervical vertebral bodies maintain their normal heights with reversal of the cervical lordosis. Multilevel spondylosis and degenerative disc disease evident. Prominent multilevel facet arthropathy. Prevertebral and paraspinal soft tissues are grossly within normal limits. Visualized portions of the lungs are clear. IMPRESSION: No acute abnormality of the cervical spine. CT scan - head: Attestation: I have reviewed the pertinent imaging results. Radiologist's impression: FINDINGS: No acute intracranial hemorrhage. No CT evidence of acute territorial infarct. No hydrocephalus or midline shift. Diffuse parenchymal volume loss with chronic microvascular ischemic changes. Mild mucosal disease of the ethmoid air cells. Remainder of the visualized paranasal sinuses and mastoid air cells are well ventilated. No acute calvarial fracture. Right posterior scalp contusion/hematoma. IMPRESSION: 1. No acute intracranial abnormality. 2. Small right posterior scalp contusion/hematoma without underlying calvarial fracture. Discharge Plan Discharge Clinical Impression: Closed head injury Patient Disposition: Home w/ Parent or Adult Condition: Stable Instructions: Head Injury (ED), Acute Neck Pain (ED) Additional Instructions: Please monitor condition carefully and if you notice change in her mental status, headache, vomiting, seizure, or other concerning symptoms, please bring her back to the ER right away You can use Tylenol if needed for headache. Please continue to do your best to protect her from falls. Please continue to encourage her to use a walker or wheelchair when ambulating. Prescriptions: No Action trazodone 50 mg tablet 25 mg PO QPM PRN spironolactone 25 mg tablet 25 mg PO DAILY lamotrigine 25 mg tablet PO Patient Comments: only taking 100 mg daily levothyroxine 125 mcg tablet 125 mcg PO DAILY hydroxyzine HCl 25 mg tablet 25 mg PO DAILY furosemide 20 mg tablet 20 mg PO DAILY gabapentin 100 mg capsule PO ondansetron 4 mg tablet,disintegrating 4 mg PO Q8H PRN atenolol 50 mg tablet 50 mg PO DAILY lamotrigine 100 mg tablet 100 mg PO BID insulin lispro [Humalog KwikPen Insulin] 100 unit/mL insulin pen subcut insulin aspart U-100 100 unit/mL (3 mL) insulin pen subcut rosuvastatin 5 mg tablet 5 mg PO DAILY insulin glargine [Lantus Solostar U-100 Insulin] 100 unit/mL (3 mL) insulin pen subcut Follow Up/Referrals: Kana Hercules MD [Primary Care Provider, Family Practice] Stand Alone Forms: [employer] ([employer] Info Instructions
--- NOTE | 2025-06-09 20:58 | CRLHL7_ITS ---
For Patients: As a result of the Century Cures Act, medical imaging exams and procedure reports are released immediately into your electronic medical record. You may view this report before your referring provider. If you have questions, please contact your health care provider. INDICATION: Trauma with altered mental status. TECHNIQUE: CT head without contrast. COMPARISON: MRI brain 05/23/2018, CT head 05/23/2018. FINDINGS: No acute intracranial hemorrhage. No CT evidence of acute territorial infarct. No hydrocephalus or midline shift. Diffuse parenchymal volume loss with chronic microvascular ischemic changes. Mild mucosal disease of the ethmoid air cells. Remainder of the visualized paranasal sinuses and mastoid air cells are well ventilated. No acute calvarial fracture. Right posterior scalp contusion/hematoma. IMPRESSION: 1. No acute intracranial abnormality. 2. Small right posterior scalp contusion/hematoma without underlying calvarial fracture. Please note that all CT scans at this facility use dose modulation, iterative reconstruction, and/or weight-based dosing when appropriate to reduce radiation dose to as low as reasonably achievable. Dictated by Ozzie Marina MD @ 06/09/2025 9:40:04 PM (Electronically Signed)
--- NOTE | 2025-06-09 21:03 | CRLHL7_ITS ---
For Patients: As a result of the Century Cures Act, medical imaging exams and procedure reports are released immediately into your electronic medical record. You may view this report before your referring provider. If you have questions, please contact your health care provider. INDICATION: Trauma. TECHNIQUE: CT cervical spine without contrast. COMPARISON: CT cervical spine 09/10/2023. FINDINGS: No acute fracture or suspicious osseous lesion. Postoperative changes C4-C7. Atlantoaxial and atlantooccipital alignment are preserved. The cervical vertebral bodies maintain their normal heights with reversal of the cervical lordosis. Multilevel spondylosis and degenerative disc disease evident. Prominent multilevel facet arthropathy. Prevertebral and paraspinal soft tissues are grossly within normal limits. Visualized portions of the lungs are clear. IMPRESSION: No acute abnormality of the cervical spine. Please note that all CT scans at this facility use dose modulation, iterative reconstruction, and/or weight-based dosing when appropriate to reduce radiation dose to as low as reasonably achievable. Dictated by Ozzie Marina MD @ 06/09/2025 9:42:55 PM (Electronically Signed)
[2025-06-09] MEDS: ACETAMINOPHEN 500 MG TABLET 1000 MG PO (21:43)
== END 2025-06-10 02:04 | disposition home or self-care (01) ==
PROVIDERS: Emergency Provider Emergency Medicine; PCP Surgery
DX: S09.90XA Unspecified injury of head, initial encounter (principal); W18.00XA Striking against unspecified object with subsequent fall, initial encounter
CPT/HCPCS: 70450; 72125; 99282; 99284; A9270

== ENCOUNTER 2025-06-10 02:06 | Outpatient (CLI) | payer MEDICARE, BC, SELFPAY | END 2025-06-10 02:07 | disposition home or self-care (01) | LOC: AMB 06-14 04:56 | PROVIDERS: PCP Surgery; Visit Provider Family Medicine | DX: S09.90XA Unspecified injury of head, initial encounter (principal) | CPT/HCPCS: A0425; A0428 ==